=== PATIENT | male | born 1960 | race Caucasian/White ===

== ENCOUNTER 2025-06-11 05:15 | Day surgery (SDC) | payer OTHER ==
[2025-06-05 08:45] VITALS: BP 147/83
[2025-06-05 08:55] LABS: BASO % 0.6 % (0.1-1.2); EOS # 0.26 (0.04-0.54); EOS % 3.4 % (0.7-7.0); LYMPH # 1.28 (1.18-3.74); LYMPH % 16.6 % (19.3-53.1); MEAN PLATELET VOLUME 9.10 fl (9.4-12.4); MONO # 1.05 (0.24-0.82); NEUT # 5.03 (1.56-6.13); NEUT % 65.4 % (34.0-71.1); RED CELL DISTRIBUTION WIDTH 13.3 % (11.6-14.4)
[2025-06-05 09:01] LABS: MONO % 13.6 % (4.7-12.5)
[2025-06-05 09:19] LABS: INR 1.06
[2025-06-05 09:23] LABS: URINE APPEARANCE Clear; URINE BILIRRUBIN Negative (NEGATIVE); URINE BLOOD Moderate; URINE COLOR Yellow; URINE GLUCOSE Negative (NEGATIVE); URINE KETONE Trace (NEGATIVE); URINE LEUKOCYTE Negative; URINE NITRATE Negative; URINE PROTEIN Negative (NEGATIVE); URINE UROBILINOGEN 1.0 E.U./dl
[2025-06-05 09:27] LABS: URINE BACTERIA 14.3 uL (0.0-1933); URINE EPITHELIAL CELLS 3.2 uL (0.0-38.8); URINE RBC 61.1 uL (0.0-20.8); URINE WBC 3.6 uL (0.0-23.2)
[2025-06-05 09:31] LABS: ALT/SGPT 45.0 U/L (12-78); AST/SGOT 30.0 U/L (15-37); BILIRUBIN TOTAL 0.44 mg/dL (0.3-1.2); BUN CREA RATIO 21.0 (7.0-25.0); CREATININE SERUM 1.08 mg/dL (0.70-1.30); GFR 68.62; GLOBULINA 3.5 G/DL (2.4-3.5); GLUCOSE FASTING 80.0 mg/dL (65-100); OSMOLALITY SERUM 284.0 MOSM/KG (275-295)
[2025-06-05 09:34] LABS: URINE CAST 0.00 uL (0.0-1.40)
[~2025-06-11] VITALS: Ht 185.4 cm; Wt 81.6 kg
[~2025-06-11 05:15] MED LIST: COZAAR100 MG PO; CYMBALTA20 MG PO; LASIX20 MG PO; LIPITOR40 MG PO; METFORMIN HCL500 M3 PO; NORVASC5 MG PO; PLAVIX75 MG PO; PROTONIX40 MG PO; TOPROL XL50 M1 PO
[2025-06-11] MEDS ORDERED: CEFAZOLIN SODIUM 1,000 MG VIAL IV ONE (08:30)
[2025-06-11] MEDS ORDERED: CEFAZOLIN SODIUM 1,000 MG VIAL IV SCH (09:45)
[2025-06-11] MEDS ORDERED: SUGAMMADEX SODIUM 200 MG/2 ML VIAL IV ONE (09:45)
[2025-06-11] MEDS ORDERED: FAMOTIDINE/PF 20 MG/10 ML SYRINGE IV SCH (09:45)
== END 2025-06-11 11:05 | disposition home or self-care (01) ==
LOC: CIR.AMB 05:15
PROVIDERS: ATTEND Specialist
DX: K40.90 Unilateral inguinal hernia, without obstruction or gangrene, not specified as recurrent (principal); Z91.013 Allergy to seafood